=== PATIENT | male | born 1990 | race Caucasian/White ===

== ENCOUNTER → 2016-06-07 | Outpatient (CLI) | payer BC ==
[~2016-06-07] MED LIST: ONDA4TAB7 SL
--- NOTE | 2016-06-07 15:52 | DIAGNOSTIC IMAGING REPORT ---
LEFT WRIST 4 VIEWS CLINICAL HISTORY: Left wrist pain. FINDINGS: 4 views of the left wrist are obtained. No prior studies are available for comparison at the time of dictation. The skeletal structures are well mineralized. No fracture is seen. The joint spaces of the wrist are well-maintained. The overlying soft tissues are within normal limits. IMPRESSION: Unremarkable radiographic assessment of the left wrist. Electronically signed by: Uche Atkins M.D. 06/07/2016 3:50 PM Dictated Date/Time: 06/07/2016 3:49 PM
--- NOTE | 2016-06-07 15:53 | DIAGNOSTIC IMAGING REPORT ---
RIGHT WRIST 4 VIEWS CLINICAL HISTORY: Right wrist pain. FINDINGS: 4 views of the right wrist are obtained. No prior studies are available for comparison at the time of dictation. The skeletal structures are well mineralized. No fracture is seen. The joint spaces of the wrist are well-maintained. The overlying soft tissues are within normal limits. IMPRESSION: Unremarkable radiographic assessment of the right wrist. Electronically signed by: Uche Atkins M.D. 06/07/2016 3:51 PM Dictated Date/Time: 06/07/2016 3:51 PM
== END | disposition home or self-care (01) ==
LOC: C.RAD1850 15:27
PROVIDERS: ATTEND Physician Assistant
DX: M25.531 Pain in right wrist (principal); M25.532 Pain in left wrist